=== PATIENT | female | born 1990 | race African-American/Black ===

== ENCOUNTER 2019-08-13 10:00 | Outpatient (CLI) | payer BC ==
--- NOTE | 2019-08-13 12:28 | ULT ---
ULTRASOUND ABDOMEN: Date: 08/13/2019 HISTORY: 29-year-old female with change in bowel habits and increased abdominal pain and frequency over the la st 2 months. FINDINGS: The liver, kidneys, and visualized portions of the pancreas and aorta are normal. The spleen is not well visualized due to overlying bowel gas. The common duct measures 3.0 mm in diam eter. No free fluid is seen. No shadowing gallstones or pericholecystic fluid is seen. There is thick ening of the wall of the gallbladder measuring up to 4.0 mm. IMPRESSION: 1. Gallbladder wall thickening without cholelithiasis. HIDA scan would be helpful. 2. Poor visualization of the spleen due to overlying bowel gas. POS: OFF
== END 2019-08-13 10:01 | disposition home or self-care (01) ==
LOC: SCSULT 10:00
DX: K59.09 Other constipation (principal); R11.0 Nausea; R14.0 Abdominal distension (gaseous); K82.8 Other specified diseases of gallbladder
CPT/HCPCS: 93975